=== PATIENT | female | born 1985 | race Caucasian/White ===

== ENCOUNTER 2017-10-03 09:37 | Emergency (ER) | payer BC ==
--- NOTE | 2017-10-03 10:47 | EDM.PDOC ---
ED HPI GENERAL MEDICAL PROBLEM - General Chief Complaint: Back Pain or Injury Stated Complaint: BACK PAIN Time Seen by Provider: 10/03/17 10:10 Source of Information: Reports: Patient History Limitations: Reports: No Limitations - History of Present Illness INITIAL COMMENTS - FREE TEXT/NARRATIVE: HISTORY AND PHYSICAL: History of present illness: [Comes to the ER for evaluation of R sided low back pain that has been present for the past several months. She has been following w/ her chiropractic for the past couple of months w/o improvement. For the past 3 weeks her pain has been significantly worse and is radiating down her R buttock into her thigh and foot. She complains of numbness and tingling to her R foot. The pain is really bothersome to her and ibuprofen is not helping. She tried to get in w/ her PCP today, but there aren't available appts for 2 weeks and she doesn't feeel that she can wait that long, so came to ER. Denies injury/trauma/accident. No identifiable cause to her low back pain. No fever or chills. NO loss of bowel or bladder control. No urinary frequency. No abd pain. No constipation/diarrhea. She limps favoring her R leg w/ walking and cannot stand for long periods. Pain in her R buttock with sitting. Had xrays done 1 month ago at chiro office. No other radiological studies. ] Review of systems: As per history of present illness and below otherwise all systems reviewed and negative. Past medical history: As per history of present illness and as reviewed below otherwise noncontributory. Surgical history: As per history of present illness and as reviewed below otherwise noncontributory. Social history: No reported history of drug or alcohol abuse. Family history: As per history of present illness and as reviewed below otherwise noncontributory. Physical exam: HEENT: Atraumatic, normocephalic.. Lungs: Clear to auscultation, breath sounds equal bilaterally.. Heart: S1S2, regular. Abdomen: Soft, nondistended, nontender. Pelvis: Stable nontender. Genitourinary: Deferred. Rectal: Deferred. Extremities: Atraumatic, negative for cords or calf pain. Patellar reflexes are 1+ and equal bilaterally. Neurovascular unremarkable. Neuro: Awake, alert, oriented. Cranial nerves II through XII unremarkable. Cerebellum unremarkable. Motor and sensory unremarkable throughout. Exam nonfocal. Back: She is tender over her upper lumbar spine and right SI joint. She is tender with palpation through her mid buttock down her right posterolateral thigh and into her foot. No foot drop. Sensation is full and intact. Range of motion is full. Limping is appreciated to her right leg with ambulation. Diagnostics: [UA w/ micro, urine ] Impression: [Low back pain with right-sided sciatica and radicular symptoms] Plan: [Scheduled for an outpatient MRI L/S spine at 1:15 today. Results are to be sent to Dr. Dyer at [facility] and to this provider in the ER. Rx is written for Medrol Dosepak No. 1 use as directed 0 refills, hydrocodone 5/325 mg #15 sig one by mouth every 6-8 hours as needed for pain 0 refills, cyclobenzaprine 10 mg #30 sig one by mouth 3 times daily as needed for spasm 0 refills. Advised to continue regular [id number] medications. Strict return precautions are reviewed. Contact Dr. Dyer for MRI results.] Definitive disposition and diagnosis as appropriate pending reevaluation and review of above. Right Lower Back Pain Score (Numeric/FACES): 8 - Related Data Allergies Allergy/AdvReac Type Severity Reaction Status Date / Time No Known Allergies Allergy Verified 10/03/17 09:52 Home Meds: Home Meds . [No Known Home Meds] 10/03/17 [History] Past Medical History - Infectious Disease History Infectious Disease History: Reports: None - Past Surgical History Female Surgical History: Reports: Section Musculoskeletal Surgical History: Reports: Other (See Below) Other Musculoskeletal Surgeries/Procedures:: R foot surgery Social & Family History - Family History Family Medical History: Noncontributory - Tobacco Use Smoking Status *Q: Never Smoker Second Hand Smoke Exposure: No - Recreational Drug Use Recreational Drug Use: No ED ROS GENERAL - Review of Systems Review Of Systems: ROS reveals no pertinent complaints other than HPI. ED EXAM,LOWER BACK PAIN/INJURY - Physical Exam Exam: See Below Course - Vital Signs Last Recorded V/S: Last Vital Signs Temp 96.6 F 10/03/17 11:18 Pulse 115 H 10/03/17 11:18 Resp 14 10/03/17 11:18 BP 128/91 H 10/03/17 11:18 Pulse Ox 97 10/03/17 11:18 - Orders/Labs/Meds Labs: Laboratory Tests 10/03/17 10/03/17 Range/Units 10:47 10:47 Urine Color YELLOW Urine Appearance CLEAR Urine pH 6.0 (5.0-8.0) Ur Specific Imogene 1.020 (1.001-1.035) Urine Protein NEGATIVE (NEGATIVE) mg/dL Urine Glucose (UA) NEGATIVE (NEGATIVE) mg/dL Urine Ketones NEGATIVE (NEGATIVE) mg/dL Urine Occult Blood LARGE H (NEGATIVE) Urine Nitrite NEGATIVE (NEGATIVE) Urine Bilirubin NEGATIVE (NEGATIVE) Urine Urobilinogen 0.2 (<2.0) EU/dL Ur Leukocyte Esterase NEGATIVE (NEGATIVE) Urine RBC 1-2 (0-2/HPF) Urine WBC 0-1 (0-5/HPF) Ur Epithelial Cells OCCASIONAL (NONE-FEW) Urine Bacteria RARE (NEGATIVE) Urine HCG, Qual NEGATIVE (NEGATIVE) Departure - Departure Time of Disposition: 10:45 Disposition: Home, Self-Care 01 Condition: Good Clinical Impression: Right-sided low back pain with right-sided sciatica - Discharge Information Instructions: Sciatica, [id number], Back Pain, Adult, [id number] Referrals: Leonardo Dyer MD [Primary Care Provider] - Forms: ED Department Discharge Additional Instructions: The following information is given to patients seen in the emergency department who are being discharged to home. This information is to outline your options for follow-up care. We provide all patients seen in our emergency department with a follow-up referral. The need for follow-up, as well as the timing and circumstances, are variable depending upon the specifics of your emergency department visit. If you don't have a primary care physician on staff, we will provide you with a referral. We always advise you to contact your personal physician following an emergency department visit to inform them of the circumstance of the visit and for follow-up with them and/or the need for any referrals to a consulting specialist. The emergency department will also refer you to a specialist when appropriate. This referral assures that you have the opportunity for follow-up care with a specialist. All of these measure are taken in an effort to provide you with optimal care, which includes your follow-up. Under all circumstances we always encourage you to contact your private physician who remains a resource for coordinating your care. When calling for follow-up care, please make the office aware that this follow-up is from your recent emergency room visit. If for any reason you are refused follow-up, please contact the [facility] emergency department at and asked to speak to the emergency department charge nurse. [address] [address] Go to your MRI appointment that is scheduled for this afternoon. Follow-up with your primary care provider at the clinic listed above within the next week. Take medications as prescribed. Continue Tylenol and ibuprofen. Return to ER as needed as discussed.
== END 2017-10-03 11:11 | disposition home or self-care (01) ==
LOC: MW.ED 09:37
DX: M54.41 Lumbago with sciatica, right side (principal); Z98.890 Other specified postprocedural states
CPT/HCPCS: 81001; 81025; 99283

== ENCOUNTER 2017-10-29 19:25 | Emergency (ER) | payer BC ==
[2017-10-29] MEDS ORDERED: Ketorolac 30 MG/ML SDV IVPUSH ONE (19:42)
--- NOTE | 2017-10-29 19:52 | EDM.PDOC ---
ED HPI GENERAL MEDICAL PROBLEM - General Chief Complaint: Back Pain or Injury Stated Complaint: UNK Time Seen by Provider: 10/29/17 19:39 - History of Present Illness INITIAL COMMENTS - FREE TEXT/NARRATIVE: HISTORY AND PHYSICAL: History of present illness: Patient 32-year-old female with history of chronic back pain who denies injury she is on muscle relaxants and narcotic analgesics for this she's had no numbness weakness incontinence or retention bowel or bladder other concern Review of systems: As per history of present illness and below otherwise all systems reviewed and negative. Past medical history: As per history of present illness and as reviewed below otherwise noncontributory. Surgical history: As per history of present illness and as reviewed below otherwise noncontributory. Social history: No reported history of drug or alcohol abuse. Family history: As per history of present illness and as reviewed below otherwise noncontributory. Physical exam: HEENT: Atraumatic, normocephalic, pupils reactive, negative for conjunctival pallor or scleral icterus, mucous membranes moist, throat clear, neck supple, nontender, trachea midline. Lungs: Clear to auscultation, breath sounds equal bilaterally, chest nontender. Heart: S1S2, regular, negative for clicks, rubs, or JVD. Abdomen: Soft, nondistended, nontender. Negative for masses or hepatosplenomegaly. Negative for costovertebral tenderness. Pelvis: Stable nontender. Genitourinary: Deferred. Rectal: Deferred. Extremities: Atraumatic, negative for cords or calf pain. Neurovascular unremarkable. Neuro: Awake, alert, oriented. Cranial nerves II through XII unremarkable. Cerebellum unremarkable. Motor and sensory unremarkable throughout. Exam nonfocal. Back: Patient has paravertebral tenderness level lumbar spinal vertebral body or point tenderness patient able stand on her toes back on her heels deep tendon reflexes are normal motor and sensory are normal Diagnostics: X-ray LS-spine hCG Therapeutics: Toradol 30 mg IV Impression: #1 chronic back pain with acute exacerbation Definitive disposition and diagnosis as appropriate pending reevaluation and review of above. low back Pain Score (Numeric/FACES): 8 - Related Data Allergies Allergy/AdvReac Type Severity Reaction Status Date / Time No Known Allergies Allergy Verified 10/29/17 19:45 Home Meds: Home Meds Cyclobenzaprine [Flexeril] 1 tab PO TID PRN 10/29/17 [History] Hydrocodone/Acetaminophen [Hydrocodon-Acetaminophen 5-325] 1 tab PO Q6HR PRN [History] Past Medical History - Infectious Disease History Infectious Disease History: Reports: None - Past Surgical History Female Surgical History: Reports: Section Musculoskeletal Surgical History: Reports: Other (See Below) Other Musculoskeletal Surgeries/Procedures:: R foot surgery Social & Family History - Family History Family Medical History: Noncontributory - Tobacco Use Smoking Status *Q: Never Smoker Second Hand Smoke Exposure: No - Recreational Drug Use Recreational Drug Use: No ED ROS GENERAL - Review of Systems Review Of Systems: ROS reveals no pertinent complaints other than HPI. ED EXAM, GENERAL - Physical Exam Exam: See Below (See dictation) Course - Vital Signs Last Recorded V/S: Last Vital Signs Temp 36.6 C 10/29/17 19:25 Pulse 108 H 10/29/17 19:25 Resp 22 H 10/29/17 19:25 BP 140/102 H 10/29/17 19:25 Pulse Ox 95 10/29/17 19:25 - Orders/Labs/Meds Orders: Active Orders 24 hr Category Date Time Status Lumbar Spine 2 or 3V [CR] Stat Exams 10/29/17 19:42 Ordered HCG QUALITATIVE,SERUM [CHEM] Stat Lab 10/29/17 19:42 Ordered Meds: Medications Discontinued Medications Generic Name Dose Route Start Last Admin Trade Name Freq PRN Reason Stop Dose Admin Ketorolac Tromethamine 30 mg 10/29/17 19:42 Toradol IVPUSH 10/29/17 19:43 ONETIME ONE Departure - Departure Time of Disposition: 19:51 Disposition: Home, Self-Care 01 Condition: Good Clinical Impression: Back pain - Discharge Information Referrals: PCP,None [Primary Care Provider] - Additional Instructions: The following information is given to patients seen in the emergency department who are being discharged to home. This information is to outline your options for follow-up care. We provide all patients seen in our emergency department with a follow-up referral. The need for follow-up, as well as the timing and circumstances, are variable depending upon the specifics of your emergency department visit. If you don't have a primary care physician on staff, we will provide you with a referral. We always advise you to contact your personal physician following an emergency department visit to inform them of the circumstance of the visit and for follow-up with them and/or the need for any referrals to a consulting specialist. The emergency department will also refer you to a specialist when appropriate. This referral assures that you have the opportunity for followup care with a specialist. All of these measure are taken in an effort to provide you with optimal care, which includes your followup. Under all circumstances we always encourage you to contact your private physician who remains a resource for coordinating your care. When calling for followup care, please make the office aware that this follow-up is from your recent emergency room visit. If for any reason you are refused follow-up, please contact the [facility] emergency department at and asked to speak to the emergency department charge nurse. Medrol as prescribed continue current medications follow-up primary medical doctor call to schedule appointment return as needed as discussed - My Orders Last 24 Hours: My Active Orders 10/29/17 19:42 Lumbar Spine 2 or 3V [CR] Stat HCG QUALITATIVE,SERUM [CHEM] Stat - Assessment/Plan Last 24 Hours: My Active Orders 10/29/17 19:42 Lumbar Spine 2 or 3V [CR] Stat HCG QUALITATIVE,SERUM [CHEM] Stat
--- NOTE | 2017-10-31 12:00 | CR ---
EXAM DATE: 10/29/17 PATIENT'S AGE: 32 Patient: HOSSEIN POWELL Facility: [place], [place] Site . Site : 1985 Study: XRay Spine Lumbar [id number]/31/2018 8:56:30 PM Ordering Physician: Bar Gallegos Final Report: INDICATION: Low back pain TECHNIQUE: Lumbar spine radiograph 3 views COMPARISON: None FINDINGS: Bones: No acute fractures or aggressive bone lesions are identified. Alignment is normal. Discs: The disc spaces are unremarkable in appearance. The facet joints are unremarkable. Soft tissues: Unremarkable. No radiopaque foreign bodies are seen. Mild gaseous distention of the transverse colon is noted. IMPRESSION: 1. No acute osseous injuries or abnormalities are noted. Dictated by Collins Peña MD @ 10/29/2017 9:06:02 PM Dictated by: Collins Peña MD @ 10/29/2017 21:10:37 (Electronic Signature) Report Signed by Proxy. ROGER
== END 2017-10-29 21:36 | disposition home or self-care (01) ==
LOC: MW.ED 19:25
DX: M54.5 Low back pain (principal); G89.29 Other chronic pain; Z79.899 Other long term (current) drug therapy
CPT/HCPCS: 36415; 72100; 84703; 96374; 99284; J1885; 99282